=== PATIENT | female | born 1955 | race Caucasian/White ===

== ENCOUNTER 2017-03-08 06:13 | Inpatient (IN) | payer OTHER ==
[~2017-03-08] VITALS: Ht 157.5 cm; Wt 78.0 kg
[2017-03-08] MEDS ORDERED: LISI-420 PO (07:18)
[2017-03-08] MEDS ORDERED: BUPIVACAINE-MPF 0.5% 30 ML VIAL INJ ONE (07:22)
[2017-03-08] MEDS ORDERED: DESFLURANE 240 ML BTL INH ONE (07:38)
[2017-03-08] MEDS ORDERED: PROPOFOL 200 MG/20 ML VIAL IV ONE (07:38)
[2017-03-08] MEDS ORDERED: ONDANSETRON 4 MG/2 ML VIAL ONE (07:38)
[2017-03-08] MEDS ORDERED: ONDANSETRON 4 MG/2 ML VIAL IVP PRN ×2 (07:40→08:30)
[2017-03-08] MEDS ORDERED: ACETAMINOPHEN/CODEINE 300/30MG 1 TAB PO PRN (07:40)
[2017-03-08] MEDS ORDERED: HYDROmorphone PFS 2 MG/ML SYR ONE (07:51)
[2017-03-08] MEDS ORDERED: fentaNYL 0.05 MG/ML VIAL ONE (07:51)
[2017-03-08] MEDS ORDERED: HYDROmorphone 1 MG/ML AMP IVP PRN (08:30)
--- NOTE | 2017-03-08 09:44 | NUR ---
RECEIVED REPORT FROM OR NURSE. PT IS AWAKE, ALERT AND ORIENTED X4. PT IS ON TELE, OBSERVATION ONLY. IV ON THE LEFT HAND, PATENT AND ASYMPTOMATIC. MONTERROSO CATH IN PLACE. SKIN IS INTACT, LARGE ABDOMINAL CLEAN DRY DRESSING COVERING INCISION WITH TEDDY PT IS AMBULATORY. VITAL SIGNS BP 143/82, HR 82, 02 98, T 97.8, RESP 18. PT RECEIVED LABETOLOL, DILAUDED, ZOFRAN, FENTANYL IN OR. PT IS SHOWING NO SIGNS OF ACUTE DISTRESS. ORIENTED TO HOSPITAL AND UNIT. PLAN OF CARE DISCUSSED, PT VERBALIZED UNDERSTANDING. BED ON LOW POSITION, BILATERAL SIDE RAILS UP. CALL LIGHT WITHIN REACH. WILL CONTINUE TO MONITOR.
--- NOTE | 2017-03-08 12:00 | NUR ---
PT SITTING UPRIGHT EATING LUNCH, NO SIGNS OF ACUTE DISTRESS. BED IN LOW POSITION WITH BILATERAL HALF SIDE RAILS UP, CALL LIGHT WITHIN REACH. WILL CONTINUE TO MONITOR.
[2017-03-08 14:03] VITALS: BP 149/88
[2017-03-08] MEDS: MORPHINE SULFATE 4 MG/ML SYR IM/IVP PRN ×2 (14:06→18:17)
--- NOTE | 2017-03-08 14:25 | NUR ---
PT SLEEPING, NO SIGNS OF ACUTE DISTRESS. BED IN LOW POSITION WITH BILATERAL HALF SIDE RAILS UP, CALL LIGHT WITHIN REACH. WILL CONTINUE TO MONITOR.
[2017-03-08 16:00] VITALS: BP 133/75
--- NOTE | 2017-03-08 16:00 | NUR ---
PT RESTING IN BED, C/O PAIN IN ABDOMEN 10/10, MEDICATED. WILL CONTINUE TO MONITOR.
--- NOTE | 2017-03-08 18:00 | NUR ---
PT SLEEPING, NO SIGNS OF ACUTE DISTRESS. FAMILY AT BEDSIDE. BED IN LOW POSITION WITH BILATERAL HALF SIDE RAILS UP, CALL LIGHT WITHIN REACH. WILL CONTINUE TO MONITOR.
--- NOTE | 2017-03-08 19:30 | NUR ---
PT AWAKE AND ALERT, NO SIGNS OF ACUTE DISTRESS. ENDORSED TO PASSENGER CAR INSPECTOR NURSE FOR CONTINUITY OF CARE.
--- NOTE | 2017-03-08 19:31 | NUR ---
RECEIVED REPORT FROM DAY NURSE, NO SIGNS OF DISTRESS NOTED. PT IS IN STABLE CONDITION. PT IS AAOX4, PT IS ON RA, IV TO L FA 20G, SALINE LOCK, PATENT AND INTACT.RESPIRATIONS ARE EVEN AND UNLABORED. ABD DRESSING IS DRY AND INTACT. INITIAL ASSESSMENT COMPLETED. PLAN OF CARE DISCUSSED WITH PT AND FAMILY AT BEDSIDE, VERBALIZED UNDERSTANDING. ALL SAFETY PRECAUTIONS MET, CALL LIGHT WITHIN REACH, WILL CONTINUE TO MONITOR.
[2017-03-08 20:00] VITALS: BP 134/75
--- NOTE | 2017-03-08 20:00 | NUR ---
CHECKED IN ON PT. PTS VITALS STABLE, NO S/S OF DISTRESS OF NOTED. ALL SAFETY PRECAUTIONS MET, CALL LIGHT WITHIN REACH, WILL CONTINUE TO MONITOR.
--- NOTE | 2017-03-08 20:30 | NUR ---
CHECKED IN ON PT. NO S/S OF DISTRESS NOTED. PT RESTING COMFORTABLY IN BED. ALL SAFETY PRECAUTIONS MET, CALL LIGHT WITHIN REACH, WILL CONTINUE TO MONITOR.
--- NOTE | 2017-03-08 22:45 | NUR ---
CHECKED IN ON PT. PT RESTING COMFORTABLY IN BED. NO S/S OF DISTRESS NOTED.ALL SAFETY PRECAUTIONS MET, CALL LIGHT WITHIN REACH, WILL CONTINUE TO MONITOR.
--- NOTE | 2017-03-08 23:30 | NUR ---
CHECKED IN ON PT, PT RESTING COMFORTABLY IN BED. NO S/S OF DISTRESS NOTED. ALL SAFETY PRECAUTIONS MET, CALL LIGHT WITHIN REACH, WILL CONTINUE TO MONITOR.
--- NOTE | 2017-03-09 | NUR ---
CHECKED IN ON PT, PT RESTING COMFORTABLY IN BED. NO S/S OF DISTRESS NOTED. PTS VITALS STABLE. GAVE POST OP TEACHING TO PT. PT INSTRUCTED TO DEEP BREATH AND COUGH WITH PILLOW IN PLACE, PT INSTRUCTED TO TURN AND ALTERNATE SIDES. PT VERBALIZED AND DEMONSTRATED UNDERSTANDING. ALL SAFETY PRECAUTIONS MET, CALL LIGHT WITHIN REACH, WILL CONTINUE TO MONITOR.
[2017-03-09 00:05] VITALS: BP 138/78
--- NOTE | 2017-03-09 02:00 | NUR ---
CHECKED IN ON PT. PT RESTING IN BED COMFORTABLY, NO S/S OF DISTRESS NOTED. ALL SAFETY PRECAUTIONS MET, CALL LIGHT WITHIN REACH, WILL CONTINUE TO MONITOR.
--- NOTE | 2017-03-09 04:00 | NUR ---
CHECKED IN ON PT, ALL VITALS STABLE, NO S/S OF DISTRESS NOTED. ALL SAFETY PRECAUTIONS MET, CALL LIGHT WITHIN REACH, WILL CONTINUE TO MONITOR.
[2017-03-09 04:50] VITALS: BP 137/79
[2017-03-09 05:58] LABS: BASOPHILS # (AUTO) 0.1 K/uL (0.00-0.22); BASOPHILS % (AUTO) 0.9 % (0.0-2.0); EOSINOPHILS # (AUTO) 0.1 K/uL (0-0.4); EOSINOPHILS % (AUTO) 0.5 % (0.0-4.0); HEMATOCRIT 38.6 % (36-48); LYMPHOCYTES # (AUTO) 1.9 K/uL (2.5-16.5); MEAN CORPUSCULAR HEMOGLOBIN 31 pg (27-31); MEAN CORPUSCULAR HGB CONC 34 g/dL (33-37); MEAN CORPUSCULAR VOLUME 91 fL (80-94); MONOCYTES # (AUTO) 0.9 K/uL (0.8-1.0); MONOCYTES % (AUTO) 8.4 % (1.7-9.3); NEUTROPHILS # (AUTO) 8.2 K/uL (1.8-7.7); NEUTROPHILS % (AUTO) 73.2 % (42.2-75.2); PLATELET COUNT (AUTO) 182 K/uL (140-450); RED BLOOD CELL COUNT(AUTO) 4.24 MIL/uL (4.20-5.40); RED CELL DISTRIBUTION WIDTH 12.7 % (11.6-13.7); WHITE BLOOD COUNT (AUTO) 11.3 K/uL (4.8-10.8)
--- NOTE | 2017-03-09 06:49 | NUR ---
D/C MONTERROSO PER MD ORDERS. PT INSTRUCTED TO CALL WHEN SHE FEELS SHE NEEDS TO VOID. 400 ML OF CLEAR, YELLOW URINE NOTED IN MONTERROSO BAG.
--- NOTE | 2017-03-09 07:23 | NUR ---
ENDORSED PLAN OF CARE TO DAY NURSE, PT IN STABLE CONDITION, NO S/S OF DISTRESS NOTED. ALL SAFETY PRECAUTIONS MET, CALL LIGHT WITHIN REACH.
--- NOTE | 2017-03-09 07:24 | NUR ---
RECEIVED PATIENT REPORT AT BEDSIDE FROM EVENING NURSE. PATIENT IS ALERT, AWAKE AND ORIENTED. NO SIGNS AND SYMPTOMS OF DISTRESS NOTED. NO COMPLAINTS OF PAIN AT THIS TIME. ABDOMINAL DRESSING NOTED, DRY AND INTACT. IV SITE NOTED ON LEFT HAND, SALINE LOCKED. BED IN LOWEST POSITION, SIDE RAILS UP AND CALL LIGHT WITHIN REACH. WILL CONTINUE TO MONITOR.
[2017-03-09 08:00] VITALS: BP 143/83
--- NOTE | 2017-03-09 08:16 | NUR ---
PATIENT HAS BEEN SCREENED AND CATEGORIZED MODERATE NUTRITION RISK. PATIENT WILL BE SEEN WITHIN 3-5 DAYS OF ADMISSION. 03/10/17-03/12/[address]
--- NOTE | 2017-03-09 09:00 | NUR ---
DAUGHTER IN LAW, LISA, CAME TO SEE PT.
--- NOTE | 2017-03-09 12:47 | NUR ---
CM NOTE INITIAL REVIEW FAXED TO [facility] / FAX# [phone], ATTN: DELLA #[phone] [id number]
--- NOTE | 2017-03-09 15:05 | NUR ---
SON SARAVANAN WITH PT. HEALTH TEACHINGS PROVIDED REGARDING IMPORTANCE OF AMBULATION ON WOUND HEALING AND PASSING OF GAS. PT AND SON VERBALIZED UNDERSTANDING. AND SON VERBALIZED THAT HE WILL WALK PT IN FEW MINUTES.
--- NOTE | 2017-03-09 15:11 | NUR ---
SON SARAVANAN WALKING PT ALONG THE HALLWAY AT THIS TIME. NO SOB. NO PAIN OR DISCOMFORT NOTED AT THIS TIME.
--- NOTE | 2017-03-09 15:43 | NUR ---
CALLED DR. Rory SHARMA REGARDING PT COMPLAINS OF HAVING GAS PAIN NOT RELIEVED BY WALKING. WITH ORDERS MADE AND CARRIED OUT TORB.
[2017-03-09] MEDS ORDERED: SIMETHICONE 80 MG TAB.CHEW PO PRN (15:45)
[2017-03-09 16:00] VITALS: BP 140/80
--- NOTE | 2017-03-09 16:15 | NUR ---
PT VERBALIZED SHE PASSED GAS AFTER WALKING AND SHE DOESN'T NEED THE GAS MEDICATION ANY MORE.
--- NOTE | 2017-03-09 19:31 | NUR ---
PATIENT REPORT GIVEN AT BEDSIDE TO EVENING NURSE. PATIENT'S FAMILY MEMBER AT BEDSIDE. PATIENT IS IN STABLE CONDITION. NO SIGNS AND SYMPTOMS OF DISTRESS NOTED.
[2017-03-09 23:37] VITALS: BP 125/81
--- NOTE | 2017-03-09 23:52 | NUR ---
PAGED DR. Michael SHARMA FOR PT REFUSED TO TAKE TYLENOL WITH CODEINE FOR PAIN. CALLED BACK AND MADE AWARE. WITH ORDER.
--- NOTE | 2017-03-10 00:04 | NUR ---
CHECKED PTS VITALS, VITALS STABLE. PT RESTING IN BED WITH DAUGHTER AT BEDSIDE. NO S/S OF DISTRESS NOTED. CALL LIGHT WITHIN REACH.
[2017-03-10] MEDS: ACETAMINOPHEN 325 MG TAB PO PRN ×2 (00:25→09:15)
[2017-03-10] MEDS ORDERED: ACETAMINOPHEN 325 MG TAB ONE (00:29)
--- NOTE | 2017-03-10 02:21 | NUR ---
PT RESTING IN BED WITH NO S/S OF DISTRESS. DAUGHTER AT BEDSIDE SLEEPING IN CHAIR. CALL LIGHT WITHIN REACH
--- NOTE | 2017-03-10 04:41 | NUR ---
CHECKED IN ON PT, PT RESTING COMFORTABLY IN BED NO S/S OF DISTRESS NOTED. ALL SAFETY PRECAUTIONS MET, CALL LIGHT WITHIN REACH WILL CONTINUE TO MONITOR.
--- NOTE | 2017-03-10 05:43 | NUR ---
PT RESTING IN BED. NO S/S OF DISTRESS. RESPIRATIONS EVEN AND UNLABORED. CALL LIGHT WITHIN REACH, WILL CONTINUE TO MONITOR. SAFETY PRECAUTIONS MET.
--- NOTE | 2017-03-10 07:21 | NUR ---
ENDORSED PLAN OF CARE TO DAY NURSE. PT IN STABLE CONDITION NO S/S OF DISTRESS NOTED.
--- NOTE | 2017-03-10 07:25 | NUR ---
RECEIVED PATIENT REPORT AT BEDSIDE FROM NIGHT NURSE. PATIENT IS AAOX4 AND SHOWS NO S/S OF ACUTE DISTRESS ON ROOM AIR. PATIENT DENIES PAIN AT THIS TIME. IV NOTED ON THE L H SL. NOTED DRESSING ON THE ABD CLEAN DRY AND INTACT. PATIENT IS AWARE OF POC FOR TODAY AND VERBALIZED UNDERSTANDING. PATIENT STATES SHE KNOWS HOW TO USE CALL LIGHT WHEN ASSISTANCE IS NEEDED. THE BED IS IN THE LOW POSITION WITH CALL LIGHT WITHIN REACH. WILL CONTINUE TO MONITOR.
[2017-03-10 08:00] VITALS: BP_SYST 132; BP_SYST 144; BP_DIAS 60; BP_DIAS 77
--- NOTE | 2017-03-10 09:00 | NUR ---
PATIENT AND FAMILY ASKED WHEN PATIENT WILL BE DISCHARGED. CALL DR Maureen SHARMA AND HE STATED HE WILL BE IN THIS MORNING TO SEE PATIENT. PATIENT AND FAMILY ARE AWARE.
--- NOTE | 2017-03-10 09:15 | NUR ---
PATIENT C/O 3/10 ABD PAIN AND ASKED FOR TYLENOL. ADMINISTERED MEDICATIONS. WILL REASSESS IN ONE HR.
--- NOTE | 2017-03-10 10:15 | NUR ---
PATIENT STATED NO PAIN. PATIENT SHOWS NO S/S OF ACUTE DISTRESS ON ROOM AIR. WILL CONTINUE TO MONITOR. PATIENT HAS FAMILY AT BEDSIDE.
--- NOTE | 2017-03-10 12:04 | NUR ---
PATIENT IN BED AND SHOWS NO S/S OF ACUTE DISTRESS ON ROOM AIR. THE BED IS LOWERED WITH CALL LIGHT WITHIN REACH. FAMILY IS AT BEDSIDE. WILL CONTINUE TO MONITOR. PATIENT IS AWARE DR Rory SHARMA NOT ON UNIT YET.
--- NOTE | 2017-03-10 12:30 | NUR ---
PATIENT BEING SEEN BY DR Maureen SHARMA. PATIENT OKAYED TO BE DISCHARGED. DR ORDERED TO REMOVE TEDDY AND APPLY STERI STRIPS. WILL PLACE ORDERS.
[2017-03-10] MEDS ORDERED: ZOLP5TAB1 PO (12:53)
[2017-03-10] MEDS ORDERED: BISA-213 RC (12:57)
--- NOTE | 2017-03-10 14:50 | NUR ---
PATIENT SHOWS NO S/S OF ACUTE DISTRESS ON ROOM AIR. PATIENT'S TEDDY WERE REMOVED. 18 TEDDY WERE REMOVED. PATIENT SURGICAL WOUND IS .5 CM X 20 CM. PATIENT TOLERATED ACTIVITY WELL.
--- NOTE | 2017-03-10 14:50 | NUR ---
FAXED CONCURRENT REVIEW TO [facility] [phone] PHONE [phone]
--- NOTE | 2017-03-10 15:30 | NUR ---
PATIENT DENIES PAIN, AAOX4, AND SHOWS NO S/S OFF ACUTE DISTRESS ON ROOM AIR. PT FAMILY AT BEDSIDE. BED IS IN LOW POSITION WITH CALL LIGHT WITHIN REACH.
[2017-03-10 16:00] VITALS: BP 114/79
--- NOTE | 2017-03-10 17:30 | NUR ---
PATIENT HAS BEEN DISCHARGED. ALL DISCHARGE INSTRUCTIONS AND PAPERWORK SIGNED AND GIVEN TO PATIENT. ALL QUESTIONS ANSWERED, PT AND FAMILY VERBALIZED UNDERSTANDING OF CONTINUITY OF CARE. ALL BELONGINGS AND PRESCRIPTIONS IN PATIENT'S POSSESSION. IV DISCONTINUED WITH CANNULA INTACT. WRISTBANDS REMOVED. PATIENT LEFT UNIT IN WHEELCHAIR WITH FAMILY PRESENT AT SIDE. PT LEFT UNIT IN STABLE CONDITION.
== END 2017-03-10 17:30 | disposition home or self-care (01) | DRG 513 ==
LOC: MDS 06:13 → MMU 06:14 → MTU 09:45
PROVIDERS: ADMIT Obstetrics & Gynecology; ATTEND Obstetrics & Gynecology
PROC: 0UT20ZZ Resection of Bilateral Ovaries, Open Approach (ICD-10-PCS; 2017-03-08)
PROC: 0UT90ZZ Resection of Uterus, Open Approach (ICD-10-PCS; principal; 2017-03-08 07:30)
PROC: 0UTC0ZZ Resection of Cervix, Open Approach (ICD-10-PCS; 2017-03-08 07:30)
PROC: 0UT70ZZ Resection of Bilateral Fallopian Tubes, Open Approach (ICD-10-PCS; 2017-03-08 07:30)
DX: N83.202 Unspecified ovarian cyst, left side (principal); E66.9 Obesity, unspecified; I10 Essential (primary) hypertension; G89.29 Other chronic pain; D25.9 Leiomyoma of uterus, unspecified; Z68.31 Body mass index [BMI] 31.0-31.9, adult
CPT/HCPCS: 36415; 85025; 86886; 86900; 86901; 87081; 88307; J0690; J1170; J2270; J2405; J2704; J3010; J3490; J7060; J7120